=== PATIENT | female | born 1995 | race American Indian/Alaskan Native ===

== ENCOUNTER 2018-07-11 19:30 | Emergency (ER) | payer BC, OTHER ==
[2018-07-11 19:41] VITALS: BP 115/79; PULSE 97; TEMP 98.5; BMI 18.8
--- NOTE | 2018-07-11 19:58 | PDOC ---
History of Present Illness - General Chief Complaint: Abscess Boil Stated Complaint: ABSCESS TO LEFT BUTTOCK Time Seen by Provider: 07/11/18 19:38 - History of Present Illness Initial Comments: This otherwise healthy 23-year-old woman presents to the ER with a one-week history of progressive pain and swelling in the left perineal area. Patient has no previous history of skin abscess/cellulitis. She states that she believes the area may have been infected because she shaves hair in the area. No history of drainage from the area; no fever/chills. The patient has been taking Augmentin 500/125 twice a day for few days. No history of MRSA or other resistant organism colonization or infection. No history of poor wound healing. 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) Past History - Past Medical History Allergies/Adverse Reactions: Allergies Allergy/AdvReac Type Severity Reaction Status Date / Time No Known Allergies Allergy Verified 07/11/18 19:32 Home Medications: Ambulatory Orders Amoxicillin/Potassium Clav [Augmentin 500-125 Tablet] 1 each PO BID 07/11/18 Amoxicillin/Potassium Clav [Augmentin 500-125 Tablet] 1 each PO BID #10 tablet 07/11/18 COPD: No Other medical history: PT DENIES - Immunization History Immunization Up to Date: Yes - Suicide/Smoking/Psychosocial Hx Smoking Status: No Smoking History: Never smoked Have you smoked in the past 12 months: No Number of Cigarettes Smoked Daily: 0 Information on smoking cessation initiated: No Hx Alcohol Use: No Substance Use Type: None Review of Systems - Review of Systems Able to Perform ROS?: Yes Comments:: 12 point review of systems is negative except for what is noted in the history of present illness *Physical Exam - Vital Signs Last Vital Signs Temp Pulse Resp BP Pulse Ox 98.5 F 97 H 18 115/79 100 07/11/18 19:30 07/11/18 19:30 07/11/18 19:30 07/11/18 19:30 07/11/18 19:30 - Physical Exam Comments: GENERAL: HEAD: Normal with no signs of trauma. EYES: PERRLA, EOMI, sclera anicteric, conjunctiva clear. ABDOMEN:. No guarding,tenderness or rebound. No distention. PERINEUM: 2 cm by 3 cm tender, erythematous, fluctuant mass lateral to posterior left labia majorum No abnormality seen of external genitalia; no extension of abscess posteriorly EXTREMITIES: Normal range of motion, no edema. No clubbing or cyanosis. No erythema, or tenderness. NEUROLOGICAL: Cranial nerves II through XII grossly intact. Normal speech. No focal neurological deficits. Moderate Sedation - Procedure Monitoring Vital Signs: Procedure Monitoring Vital Signs Temperature 98.5 F 07/11/18 19:30 Pulse Rate 97 H 07/11/18 19:30 Respiratory Rate 18 07/11/18 19:30 Blood Pressure 115/79 07/11/18 19:30 O2 Sat by Pulse Oximetry (%) 100 07/11/18 19:30 Procedures - Incision and Drainage I&D Site: Left: Groin Betadine cleansed: No (chlorhexidine/ethanol solution) Anesthesia: 1% Lidocaine Volume(ml): 1 Blade Size: 11 Attempts: 1 Iodinated Packin/ in Complications: none Progress: Area of the left perineum abscess prepped using chlorhexidine/ethanol solution and area sterilely draped. 1 mL of 1% lidocaine infiltrated into Center of abscess for local anesthesia. #11 blade used to make 1.5 cm longitudinal incision. Copious thin purulent discharge expressed from the abscess and sample sent for C&S. Wound irrigated with 30 mL of sterile normal saline. Using forceps, cavity gently explored. No evidence of extension of cavity or further collections of pus. Wound gently packed using quarter inch iodoform gauze. Dry sterile dressing with paper tape applied to wound. Patient tolerated procedure well Medical Decision Making - Medical Decision Making As noted above, this 23-year-old woman presents with a one-week history of left sided perineal area abscess. Incision and drainage procedure performed as noted above. Patient had been taking Augmentin, 500/125 twice a day for a few days. Because of significant amount of induration/erythema around the actual abscess, we will continue this medication for the next 5 days. Patient was given a dose now and remainder of the prescription sent to her pharmacy. Dry protective dressing will be continued for the next 2 days and in 48 hours, packing will be removed . After this, dressing can be used as needed and patient can bathe normally. *DC/Admit/Observation/Transfer Diagnosis at time of Disposition: Perineal abscess - Discharge Dispostion Disposition: HOME Condition at time of disposition: Stable - Prescriptions Prescriptions: Amoxicillin/Potassium Clav [Augmentin 500-125 Tablet] 1 each PO BID #10 tablet - Referrals - Patient Instructions Printed Discharge Instructions: DI for Incision and Drainage of a Skin Abscess Additional Instructions: maintain dry dressing to wound for the next 2 days remove packing in 48 hours, then protective dressing as needed continue Augmentin 500/125 twice a day for the next 5 days return or see your doctor if area becomes more swollen/red/painful - Post Discharge Activity
[2018-07-11] MEDS ORDERED: AMOX TR/POT CLAV 500MG/125MG TABLETS (FP) PO ONE (20:23)
[2018-07-11] MEDS ORDERED: AMOX TR/POT CLAV 500MG/125MG TABLETS (FP) ONE (20:30)
== END 2018-07-11 20:39 | disposition home or self-care (01) ==
LOC: FER 19:30
PROC: 0H99XZZ Drainage of Perineum Skin, External Approach (ICD-10-PCS; principal; 2018-07-11)
DX: L02.215 Cutaneous abscess of perineum (principal)
CPT/HCPCS: 87070; 87205; 99283-25